=== PATIENT | female | born 1990 | race Caucasian/White ===

== ENCOUNTER 2023-03-24 18:03 | Inpatient (IN) | payer OTHER ==
[~2023-03-24] VITALS: Ht 165.1 cm; Wt 81.0 kg
[2023-03-24 21:49] LABS: BASOPHILS % (AUTO) 0.7 % (0.0-2.0); HEMATOCRIT 40.7 % (36-46); HEMOGLOBIN 13.4 g/dL (12.0-16.0); LYMPHOCYTES # (AUTO) 2.1 K/uL (1.0-4.8); LYMPHOCYTES % (AUTO) 30.1 % (22.0-44.0); MEAN CORPUSCULAR HEMOGLOBIN 27.9 pg (26.0-34.0); MEAN CORPUSCULAR HGB CONC 32.9 G/dL (31.0-37.0); MEAN CORPUSCULAR VOLUME 85 fL (80-100); MONOCYTES # (AUTO) 0.5 K/uL (0.1-1.0); MONOCYTES % (AUTO) 7.7 % (2.0-9.0); NEUTROPHILS # (AUTO) 4.1 K/uL (1.8-7.7); NEUTROPHILS % (AUTO) 59.5 % (40.0-70.0); PLATELET COUNT (AUTO) 260 K/uL (150-450); RED BLOOD CELL COUNT(AUTO) 4.79 MIL/uL (4.00-5.20); RED CELL DISTRIBUTION WIDTH 12.7 % (11.5-14.5)
[2023-03-24 21:50] LABS: COVID AG,FIA SOURCE NASOPHARYNGEAL
[2023-03-24 21:51] LABS: BARBITURATE SCREEN, URINE NEGATIVE (NEGATIVE); BENZODIAZEPINES SCREEN,URINE NEGATIVE (NEGATIVE); CANNABINOID SCREEN,URINE NEGATIVE (NEGATIVE); COCAINE SCREEN,URINE NEGATIVE (NEGATIVE); METHADONE SCREEN, URINE NEGATIVE (NEGATIVE); OPIATE SCREEN,URINE NEGATIVE (NEGATIVE); PHENCYCLIDINE SCREEN,URINE NEGATIVE (NEGATIVE)
[2023-03-24 21:59] LABS: ANION GAP 6 mmol/L (8-16); CALCIUM, TOTAL 8.5 mg/dL (8.8-10.5); CARBON DIOXIDE 28 mmol/L (22-29); CHLORIDE 100 mmol/L (98-107); CREATININE 0.73 mg/dL (0.60-1.30); GLOMERULAR FILTR. RATE CALC > 60 mL/min (>60); GLUCOSE,RANDOM 103 mg/dL (70-110); POTASSIUM 3.9 mmol/L (3.5-5.1); SODIUM SERUM 134 mmol/L (136-145)
[2023-03-24 22:15] LABS: AMPHET/METH SCREEN,URINE NEGATIVE (NEGATIVE)
[2023-03-24] MEDS ORDERED: ACETAMINOPHEN 500 MG TABLET PO ONE (22:15)
[2023-03-24 22:19] LABS: ALANINE AMINOTRANSFERASE 20 U/L (12-78); ALBUMIN 3.8 g/dL (3.4-5.0); ALKALINE PHOSPHATASE 76 U/L (46-116); ASPARTATE AMINOTRANSFERASE 25 U/L (15-37); BILIRUBIN,TOTAL 0.4 mg/dL (0.1-1.0); HCG,QUANTITATIVE < 1 mIU/mL (0-6); TOTAL PROTEIN, SERUM 7.3 g/dL (6.4-8.2)
[2023-03-25] MEDS ORDERED: ZOLPIDEM TARTRATE 10 MG TABLET PO PRN (00:45)
[2023-03-25] MEDS ORDERED: HALOPERIDOL 5 MG TABLET PO PRN (00:45)
[2023-03-25 07:25] LABS: APPEARANCE,URINE CLEAR (CLEAR); BILIRUBIN,URINE NEGATIVE (NEGATIVE); GLUCOSE, URINE (UA) NEGATIVE (NEGATIVE); LEUKOCYTE ESTERASE ,URINE NEGATIVE (NEGATIVE); NITRATE,URINE NEGATIVE (NEGATIVE); OCCULT BLOOD,URINE NEGATIVE (NEGATIVE); PH,URINE 5.5 (5.0-8.0); PROTEIN,URINE NEGATIVE (NEGATIVE); SPECIFIC GRAVITIY, URINE 1.006 (1.003-1.030); UROBILINOGEN,URINE <=1.0 mg/dL (<=1.0)
[2023-03-25 15:21] VITALS: BP 135/79
[2023-03-25] MEDS: SUMAtriptan SUCCINATE 25 MG TABLET PO PRN (15:21)
[2023-03-25 20:57] VITALS: BP 124/87
[2023-03-25] MEDS: LORazepam 2 MG TABLET PO PRN (20:57)
[2023-03-26 08:41] VITALS: BP 92/58
[2023-03-26 11:00] VITALS: BP 126/60
[2023-03-26] MEDS: SUMAtriptan SUCCINATE 25 MG TABLET PO PRN ×2 (11:00→20:45)
[2023-03-26] MEDS ORDERED: TRAZ-252 PO (12:40)
[2023-03-26] MEDS ORDERED: ESCI5TAB16 PO (12:40)
[2023-03-26] MEDS: ESCITALOPRAM OXALATE 10 MG TABLET PO SCH (13:10)
[2023-03-26] MEDS: ACYCLOVIR 800 MG TABLET PO SCH (16:32)
[2023-03-26] MEDS ORDERED: FLUCONAZOLE 150 MG TABLET PO ONE (17:00)
[2023-03-26] MEDS: LORazepam 2 MG TABLET PO PRN (20:25)
[2023-03-26] MEDS: TraZODone HCL 50 MG TABLET PO SCH (20:25)
[2023-03-26 20:30] VITALS: BP 129/84
[2023-03-26 21:06] VITALS: BP 123/74
[2023-03-27 09:24] VITALS: BP 123/94
[2023-03-27] MEDS: ESCITALOPRAM OXALATE 10 MG TABLET PO SCH (09:42)
[2023-03-27] MEDS: ACYCLOVIR 800 MG TABLET PO SCH ×2 (09:42→16:20)
[2023-03-27] MEDS: TraZODone HCL 50 MG TABLET PO SCH (20:34)
[2023-03-27 20:58] VITALS: BP 120/70
[2023-03-28] MEDS: ACYCLOVIR 800 MG TABLET PO SCH ×2 (08:14→16:44)
[2023-03-28] MEDS: ESCITALOPRAM OXALATE 10 MG TABLET PO SCH (08:15)
[2023-03-28 09:55] VITALS: BP 98/58
[2023-03-28] MEDS: TraZODone HCL 50 MG TABLET PO SCH (20:05)
[2023-03-28] MEDS: LORazepam 2 MG TABLET PO PRN (21:37)
[2023-03-28 22:38] VITALS: BP 97/72
[2023-03-29 09:11] VITALS: BP 90/57
[2023-03-29] MEDS: ESCITALOPRAM OXALATE 10 MG TABLET PO SCH (09:40)
[2023-03-29] MEDS: ACYCLOVIR 800 MG TABLET PO SCH ×2 (09:40→16:53)
[2023-03-29] MEDS: LORazepam 2 MG TABLET PO PRN (21:37)
[2023-03-29] MEDS: TraZODone HCL 50 MG TABLET PO SCH (22:02)
[2023-03-29 22:45] VITALS: BP 110/69
[2023-03-30] MEDS ORDERED: PETROLATUM,WHITE 28 GM JELLY TP PRN (06:30)
[2023-03-30] MEDS ORDERED: NICOTINE 14 MG/24 HOUR PATCH TD PRN (06:30)
[2023-03-30] MEDS ORDERED: LOPERAMIDE HCL 2 MG CAPSULE PO PRN (06:30)
[2023-03-30] MEDS ORDERED: ACETAMINOPHEN 325 MG TABLET PO PRN (06:30)
[2023-03-30] MEDS ORDERED: DOCUSATE SODIUM 100 MG CAPSULE PO PRN (06:30)
[2023-03-30] MEDS ORDERED: ALBUTEROL SULFATE HFA 90 MCG/PUFF 8 GM INHALER IH PRN (06:30)
[2023-03-30] MEDS ORDERED: ONDANSETRON HCL 4 MG TABLET PO PRN (06:30)
[2023-03-30] MEDS ORDERED: MAG HYDROX/AL HYDROX/SIMETH ES 30 ML SUSPENSION UDCUP PO PRN (06:30)
[2023-03-30] MEDS ORDERED: MAGNESIUM HYDROXIDE SUSPENSION 30 ML UDCUP PO PRN (06:30)
[2023-03-30] MEDS ORDERED: CloNIDine HCL 0.1 MG TABLET PO PRN (06:30)
[2023-03-30] MEDS ORDERED: GuaiFENesin/D-METHORPHAN [SUGAR-FREE] 200-20MG/10 ML SYRUP UDCUP PO PRN (06:30)
[2023-03-30] MEDS ORDERED: IBUPROFEN 400 MG TABLET PO PRN (06:30)
[2023-03-30] MEDS: ACYCLOVIR 800 MG TABLET PO SCH (08:16)
[2023-03-30] MEDS: ESCITALOPRAM OXALATE 10 MG TABLET PO SCH (08:16)
[2023-03-30 10:30] VITALS: BP 96/55
[2023-03-30] MEDS ORDERED: TRAZ-252 PO (11:26)
[2023-03-30] MEDS ORDERED: ESCI10 PO (11:26)
== END 2023-03-30 13:55 | disposition home or self-care (01) | DRG 885 ==
LOC: EMS 18:08 → 3EI 03-25 09:39
PROVIDERS: ADMIT Psychiatry & Neurology Psychiatry; ATTEND Psychiatry & Neurology Psychiatry
DX: F33.2 Major depressive disorder, recurrent severe without psychotic features (principal); E87.1 Hypo-osmolality and hyponatremia; R45.851 Suicidal ideations; B00.9 Herpesviral infection, unspecified; F41.9 Anxiety disorder, unspecified; G43.909 Migraine, unspecified, not intractable, without status migrainosus; G47.00 Insomnia, unspecified; Z20.822 Contact with and (suspected) exposure to COVID-19; I95.9 Hypotension, unspecified; Z88.3 Allergy status to other anti-infective agents; Z79.899 Other long term (current) drug therapy
CPT/HCPCS: 80053; 80307; 81003; 84702; 85025; 99285; G0480